=== PATIENT | male | born 1965 | race Caucasian/White ===

== ENCOUNTER → 2019-12-02 13:04 | Outpatient (BNVA) | payer MEDICARE, MEDICAID, SELFPAY | PROVIDERS: PCP Family Medicine; Visit Provider Internal Medicine Rheumatology | DX: M45.9 Ankylosing spondylitis of unspecified sites in spine (principal); Z11.59 Encounter for screening for other viral diseases; Z79.899 Other long term (current) drug therapy; Z15.89 Genetic susceptibility to other disease | CPT/HCPCS: 36415; 80076; 82565; 85025; 85651; 86140; 86704; 99214 ==

== ENCOUNTER 2022-06-20 11:50 | Emergency (ER) | payer MEDICARE, MEDICAID, SELFPAY ==
[2022-06-20 12:00] VITALS: BP 112/81; PULSE 112; RESP 16; TEMP 36.7; O2SAT 96; BMI 28.8
--- NOTE | 2022-06-20 12:04 | ECG_ITS ---
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 Measurements Intervals [place] Rate: 112 P: -5 LA: 140 QRS: 81 QRSD: 132 T: -5 QT: 341 QTc: 466 Interpretive Statements SINUS TACHYCARDIA RIGHT BUNDLE BRANCH BLOCK [120+ ms QRS DURATION, UPRIGHT V1, 40+ ms S IN I/aVL/V4/V5/V6] ST DEVIATION AND MARKED T-WAVE ABNORMALITY, CONSIDER ANTEROLATERAL ISCHEMIA [-0.5+ mV T-WAVE IN I/aVL/V3-V6] No previous ECG available for comparison Electronically Signed On 06-21-2022 14:08:26 CHECKER by Jaziel Hernandez M.D. [email or web address] USAselect medical [facility].Zane Prep/store/OM/[id number]
[2022-06-20 12:40] VITALS: BP 136/91; PULSE 106; RESP 16; O2SAT 94
--- NOTE | 2022-06-20 12:40 | XR_ITS ---
WS: [id number] Portable AP upright chest, 06/20/2022 Clinical Data: syncope Comparison: Two-view chest, 06/11/2018 Findings: No nodules, masses or effusions are seen. The heart is normal. The pulmonary vascularity is not increased. No pneumonia or pneumothorax is seen. There are monitor leads on the chest wall XR/XR chest 1V portable [id number] Impression: Negative chest.
--- NOTE | 2022-06-20 12:41 | ED_ITS ---
HPI - Arrhythmia/Palpitations General: Chief Complaint: Arrhythmia/Palpitations Stated Complaint: UC sent elevated hr Time Seen by Provider: 06/20/22 12:15 History of Present Illness: 56 year old male in with concerns of a syncopal episode yesterday. The patient now has had several syncopal episodes since 2019. The patient has felt well except he has been a little feverish since y esterday he has not objectively taken his temperature but has felt warm and then other times he has some chills. He is got a slight nonproductive cough nobody else is ill he does not have any other symptoms. Patient was initially over to urgent care with a sent him over here because his heart rate was a little bit elevated. Review of Systems 2 General: Reports: 10 or more systems reviewed and unremarkable except in HPI and below Const: Reports: chills, fatigue and malaise; Denies: fever(s) or night sweats Card: Denies: chest pain, palpitations or irregular heart rhythm Resp: Denies: dyspnea or productive cough Skin/Breast: Denies: rash or pruritus PFSH ED PFSH: Medical History Ankylosing spondylitis Health education/counseling High risk medication use HLA B27 (HLA B27 positive) Immunization counseling Joint pain Surgical History No significant past surgical history Family History Other CAD (coronary artery disease) Cancer Diabetes Heart disease Hypertension Denies family history of Rheumatoid arthritis Lupus Lung disease Stroke Social History Smoking and tobacco status: never smoked Physical Exam Const: COMMON NORMALS: no acute distress, patient oriented x3, alert and well nourished HENMT: COMMON NORMALS: normocephalic HEAD & SCALP: normocephalic Eye: COMMON NORMALS: Equal, round and reactive pupils present, EOMs intact bilaterally and conjunctivae normal CONJUNCTIVA: Yes conjunctivae normal PUPIL: Yes Equal, round and reactive pupils present Chest: COMMONS NORMALS: normal inspection of the chest and normal palpation of entire chest wall Resp: COMMON NORMALS: normal respiratory effort, No retractions, No use of accessory muscles, clear to auscultation bilaterally and percussion normal AUSCULTATION: clear to auscultation bilaterally PERCUSSION: percussion normal Cardio: OTHER: Regular rate and rhythm GI: COMMON NORMALS: Normal to inspection, nondistended, normoactive bowel sounds present, Soft to palpation, non-tender, No hepatosplenomegaly present, no masses and no bruits PALPATION: Yes Soft to palpation and Yes No hepatosplenomegaly present : COMMON NORMALS: Yes no CVA tenderness BLADDER/KIDNEY EXAM: Yes no CVA tenderness Back/Pelvis: COMMON NORMALS: no CVA tenderness Extremity: COMMON NORMALS: normal to inspection, full ROM, capillary refill normal, no joint enlargement, no clubbing, cyanosis or edema, no calf tenderness and no pedal edema Neuro: COMMON NORMALS: patient oriented x3 SENSORIUM/ORIENTATION: Yes alert Skin: COMMON NORMALS: no rashes or lesions noted, turgor normal and no jaundice GENERAL SKIN EXAM: no rashes or lesions noted and turgor normal Course Vital Signs: Vital signs: Vital Signs Temperature 98.1 F 06/20/22 12:00 Pulse Rate 106 H 06/20/22 16:44 Respiratory Rate 19 H 06/20/22 16:44 Blood Pressure 142/95 06/20/22 16:44 Pulse Oximetry 94 06/20/22 16:44 Oxygen Delivery Me thod 06/20/22 12:40 MDM - Arrhythmia/Palpitations Medical Decision Making 56-year-old male with syncope yesterday and now not feeling well today. The patient is a little tachycardic. Differential is broad and includes pneumonia, pulmonary embolism, pneumonia among others. Recommend a fairly broad work-up if his D-dimer is negative we can probably hold on his CTA. We will do serial reexaminations. EKG reveals right bundle branch block with OH interval of 178 ms QRS of 140 ms. Other work-up here was for the most part unremarkable and CT a did reveal concerns of possible pneumonitis. His white blood cell count is little bit elevated he has been feeling febrile. The patient will be started on some antibiotics but he will need a further work-up regarding his abnormal EKG and syncope. I have cautioned him on driving and told him the importance of making sure that he follows up on these issues as the work-up in regards to his syncope and some of his other symptoms I think was nondiagnostic. Lab Data 06/20/22 12:46 06/20/22 12:46 Radiology Impressions Chest X-Ray 06/20/22 12:40 Impression: Negative chest. Chest CTA 06/20/22 14:30 IMPRESSION: 1. No pulmonary embolism. 2. No RIGHT heart strain. 3. No pneumonia. 4. Mild atherosclerosis thoracic aorta. Laboratory Results WBC 12.8 10^3/uL (4.0-10.0) H 06/20/22 12:46 RBC 5.63 10^6/uL (4.1-5.3) H 06/20/22 12:46 Hgb 17.1 g/dL (11.7-16.6) H 06/20/22 12:46 Hct 48.8 % (42.0-52.0) 06/20/22 12:46 MCV 86.7 fl (80-94) 06/20/22 12:46 MCH 30.4 pg (28.0-34.0) 06/20/22 12:46 MCHC 35.0 g/dL (30.0-36.0) 06/20/22 12:46 RDW 12.8 % (12.1-15.1) 06/20/22 12:46 Plt Count 237 10^3/cmm (130-400) 06/20/22 12:46 MPV 9.6 fL (7.4-10.4) 06/20/22 12:46 Neut % (Auto) 90.4 % 06/20/22 12:46 Lymph % (Auto) 2.7 % 06/20/22 12:46 [place] % (Auto) 5.9 % 06/20/22 12:46 Eos % (Auto) 0.3 % 06/20/22 12:46 Baso % (Auto) 0.3 % 06/20/22 12:46 Neut # (Auto) 11.54 10^3/uL (1.8-7.7) H 06/20/22 12:46 Lymph # (Auto) 0.3 10^3/uL (0.8-4.8) L 06/20/22 12:46 [place] # (Auto) 0.8 10^3/uL (0.2-0.9) 06/20/22 12:46 Eos # (Auto) 0.0 10^3/uL (0.0-0.8) 06/20/22 12:46 Baso # (Auto) 0.0 10^3/uL (0.0-0.1) 06/20/22 12:46 Nucleated RBC % (auto) 0 % 06/20/22 12:46 Nucleated RBCs # 0.0 /100WBC 06/20/22 12:46 D-Dimer 0.97 ug/mIFEU (0-0.59) H 06/20/22 12:46 Sodium 129 mmol/L (136-145) L 06/20/22 12:46 Potassium 3.3 mmol/L (3.5-5.1) L 06/20/22 12:46 Chloride 91 mmol/L (98-107) L 06/20/22 12:46 Carbon Dioxide 22 mmol/L (22-29) 06/20/22 12:46 Anion Gap 19.3 (5-19) H 06/20/22 12:46 BUN 20 mg/dL (6-20) 06/20/22 12:46 Creatinine 1.5 mg/dL (0.7-1.2) H 06/20/22 12:46 GFR Calculation 48.8 mL/min (90-130) L 06/20/22 12:46 Glucose 132 mg/dL (65-115) H 06/20/22 12:46 Calculated Osmolality 272 mOsm/kg (285-295) L 06/20/22 12:46 Calcium 10.0 mg/dL (8.5-10.5) 06/20/22 12:46 Troponin T Baseline 7 ng/L (0-15) 06/20/22 12:46 NT-Pro-B Natriuret Pep 80 pg/mL (0-125) 06/20/22 12:46 Discharge Plan Discharge Patient Disposition: Home Clinical Impression: Abnormal EKG, Recurrent syncope, Pneumonitis Condition: Stable Prescriptions: New doxycycline hyclate 100 mg tablet 100 mg PO BID 7 Days Qty: 14 0RF No Action lisinopril-hydrochlorothiazide 20-12.5 mg tablet 1 tab PO DAILY Discharge Orders: Discharge ED (Routine); Ordered 06/20/22 Ordered By: Zev Ramos Discharge Diet: Usual diet Discharge Activity: Limit activity as instructed Patient Instructions: Opioid Safety, Pain Management Activity Restrictions/Additional Instructions: 1. Should avoid driving until cleared by cardiology or PCP. 2. Needs follow up in 3-5 days for recheck of labs / discuss abnormal EKG. 3. Return to ED for new or worsening symptoms. 4. Increase potassium rich foods. Coding Level of Care Code ED Hooker Machine Tender for Mac Jung
[2022-06-20 13:00] LABS: Basophils % 0.3 %; Eosinophils % 0.3 %; Hematocrit 48.8 % (42.0-52.0); Hemoglobin 17.1 g/dL (11.7-16.6); Lymphocytes # 0.3 10^3/uL (0.8-4.8); Lymphocytes % 2.7 %; Mean Corpuscular Hemoglobin 30.4 pg (28.0-34.0); Mean Corpuscular Volume 86.7 fl (80-94); Mean Platelet Volume 9.6 fL (7.4-10.4); Monocytes # 0.8 10^3/uL (0.2-0.9); Monocytes % 5.9 %; Neutrophils # 11.54 10^3/uL (1.8-7.7); Neutrophils % 90.4 %; Nucleated Red Blood Cells % 0 %; Platelet Count 237 10^3/cmm (130-400); Red Blood Count 5.63 10^6/uL (4.1-5.3); Red Cell Distribution Width 12.8 % (12.1-15.1); White Blood Count 12.8 10^3/uL (4.0-10.0)
--- NOTE | 2022-06-20 13:11 | ECG_ITS ---
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 Measurements Intervals [place] Rate: 96 P: 27 MN: 178 QRS: 52 QRSD: 140 T: 7 QT: 359 QTc: 455 Interpretive Statements SINUS RHYTHM RIGHT BUNDLE BRANCH BLOCK [120+ ms QRS DURATION, UPRIGHT V1, 40+ ms S IN I/aVL/V4/V5/V6] Compared to ECG 06/20/2022 12:07:18 Sinus tachycardia no longer present T-wave abnormality no longer present Possible ischemia no longer present Electronically Signed On 06-21-2022 14:09:26 SERVICE CENTER MANAGER by Jaziel Hernandez M.D. [email or web address] Products [email or web address] clinic hillcrest hospital.[employer]/store/OM/[id number]
[2022-06-20 13:15] LABS: D Dimer 0.97 ug/mIFEU (0-0.59)
[2022-06-20 13:21] LABS: Troponin(5th) Baseline 7 ng/L (0-15)
[2022-06-20 13:28] LABS: Anion Gap 19.3 (5-19); Blood Urea Nitrogen 20 mg/dL (6-20); Carbon Dioxide 22 mmol/L (22-29); Chloride 91 mmol/L (98-107); Glomerular Filtration Rate 48.8 mL/min (90-130); Glucose 132 mg/dL (65-115); NT Pro B Type Natriuretic Pept 80 pg/mL (0-125); Osmolality Calculated 272 mOsm/kg (285-295); Potassium 3.3 mmol/L (3.5-5.1); Sodium 129 mmol/L (136-145)
--- NOTE | 2022-06-20 14:30 | CT_ITS ---
WS: [id number] CT CHEST ANGIOGRAPHY WITH REFORMATS HISTORY: Syncope / Elevated D-Dimer TECHNIQUE: Contiguous axial images are obtained through the chest during arterial injection of intrav enous contrast. Images are reconstructed to evaluate the pulmonary arteries. MIP imaging also reviewe d. All CT scans at [facility] use at least one of these dose optimization techniques: automat ed exposure control; mA and/or kV adjustment per patient size (includes targeted exams where dose is matched to clinical indication); or iterative reconstruction. CONTRAST: Omnipaque 350; 95 mL IV. DLP: 357.62 mGy.cm COMPARISON: None available. Good opacification of the pulmonary arteries. No filling defects or pulmonary emboli are identified. There is good opacification to the segmental branches. Pulmonary artery is not dilated. No RIGHT hear t strain. Mild atherosclerosis aorta. No dissection or aneurysm. No mediastinal or hilar adenopathy. Mild dependent changes at the lung bases. There is groundglass attenuation in the RIGHT lower lobe wh ich may be due to early changes of pneumonitis but more likely related to poor inspiration. No perica rdial or pleural effusions. Small hiatal hernia. No adrenal mass. Calcification along the anterior longitudinal ligament. CT/CT angio chest PE protcl [id number] IMPRESSION: 1. No pulmonary embolism. 2. No RIGHT heart strain. 3. No pneumonia. 4. Mild atherosclerosis thoracic aorta.
[2022-06-20] MEDS: iohexol 350 mg/mL 500 mL Btl (per mL) IV (15:29)
[2022-06-20 16:03] VITALS: BP 142/95; PULSE 100; RESP 17; O2SAT 98
[2022-06-20 16:05] VITALS: BP 142/95; PULSE 106; RESP 19; O2SAT 94
[2022-06-20 16:44] VITALS: BP 142/95; PULSE 106; RESP 19; O2SAT 94
== END 2022-06-20 16:46 | disposition home or self-care (01) ==
PROVIDERS: Emergency Provider Family Medicine
DX: R55 Syncope and collapse (principal); J18.9 Pneumonia, unspecified organism; I70.0 Atherosclerosis of aorta
CPT/HCPCS: 71045; 71275; 80048; 83880; 84484; 85025; 85378; 93005; 99285; Q9967

== ENCOUNTER → 2022-08-17 14:40 | Outpatient (BNVA) | payer MEDICARE, MEDICAID, SELFPAY | PROVIDERS: PCP Family Medicine; Visit Provider Internal Medicine Cardiovascular Disease | DX: R55 Syncope and collapse (principal); R94.31 Abnormal electrocardiogram [ECG] [EKG]; I10 Essential (primary) hypertension; Z15.89 Genetic susceptibility to other disease; Z87.891 Personal history of nicotine dependence | CPT/HCPCS: 99204 ==

== ENCOUNTER 2022-09-15 08:23 | Outpatient (CLI) | payer MEDICARE, MEDICAID, SELFPAY ==
--- NOTE | 2022-09-15 08:45 | USCV_ITS ---
Parker Hayes Age: 57 Gender: M : 1965 Exam Date: 09/15/2022 09:13 Ordering Phys: Jaziel Hernandez MD ([email or web address]) Technologist: Naa Whitaker Exam Location: [facility] Indication: SOB, HTN BP: 122 / 80 HR: 69 Rhythm: Sinus Technical Quality: Adequate MEASUREMENTS (Male / Female) Normal Values 2D ECHO LV Diastolic Diameter PLAX 4.5 cm 4.2 - 5.9 / 3.9 - 5.3 cm LV Systolic Diameter PLAX 2.3 cm IVS Diastolic Thickness 0.8 cm 0.6 - 1.0 / 0.6 - 0.9 cm IVS Systolic Thickness 1.2 cm LVPW Diastolic Thickness 0.8 cm 0.6 - 1.0 / 0.6 - 0.9 cm LVPW Systolic Thickness 1.7 cm LVOT Diameter 2.0 cm LV Ejection Fraction 2D Teich 80.8 % LV Ejection Fraction MOD 2C 62.2 % LV Ejection Fraction 2C AL 63.0 % LA Diameter 2.1 cm LA Width 2.8 cm LA Height 4.1 cm RA Width 3.4 cm RA Height 3.8 cm Aorta at Sinotubular Diameter 2.5 cm IVC Diameter 2.2 cm M-MODE Aortic Annulus Diameter 3.5 cm LA Ao Ratio MM 0.6 MV E Point Septal Separation 0.5 cm DOPPLER AV Peak Velocity 92.0 cm/s LVOT Peak Velocity 74.0 cm/s AV Area Cont Eq vti 3.0 cm squared AV Area Cont Eq pk 2.6 cm squared MV Peak Velocity 79.0 cm/s MV Area PHT 2.7 cm squared Mitral E to A Ratio 1.0 MV E' Velocity 41.0 cm/s Mitral E to MV E' Ratio 7.7 Mitral E to LV E' Lateral Ratio 8.3 Mitral E to LV E' Septal Ratio 7.1 TR Peak Velocity 60.0 cm/s TR Peak Gradient 1.4 mmHg Right Atrial Pressure 5.0 mmHg Pulmonary Artery Systolic Pressu 6.4 mmHg PV Peak Velocity 113.0 cm/s RV Acceleration Time 0.1 s RV Ejection Time 0.3 s RV AcT/ET 0.3 FINDINGS Left Ventricle Left Ventricle is normal in size. LV systolic function is normal with EF of 60 to 65%. No regional wall motion abnormalities are seen. Right Ventricle Normal in size and function Right Atrium Normal in size Left Atrium Normal in size Mitral Valve Structurally normal mitral valve. Trace mitral regurgitation Aortic Valve Structurally normal aortic valve. No significant stenosis or regurgitation. Tricuspid Valve Mild tricuspid regurgitation. Insufficient TR jet to calculate RVSP Pulmonic Valve Not well-visualized Pericardium Normal Aorta Normal in size IVC Appears to be normal CONCLUSIONS LV systolic function is normal with EF 60 to 65%. Trace mitral regurgitation Mild tricuspid regurgitation No comparison studies are available Nav Anand MD (Electronically Signed) Final Date: 30 September 2022 12:34 S
== END 2022-09-15 08:24 | disposition home or self-care (01) ==
PROVIDERS: PCP Family Medicine; Visit Provider Internal Medicine Cardiovascular Disease
DX: R06.09 Other forms of dyspnea (principal)
CPT/HCPCS: 93306

== ENCOUNTER → 2022-11-02 13:32 | Outpatient (BNVA) | payer MEDICARE, MEDICAID, SELFPAY | PROVIDERS: PCP Family Medicine; Visit Provider Internal Medicine Cardiovascular Disease | DX: R55 Syncope and collapse (principal); I10 Essential (primary) hypertension; Z87.891 Personal history of nicotine dependence | CPT/HCPCS: 99214 ==

== ENCOUNTER 2023-11-27 18:59 | Emergency (ER) | payer OTHER, MEDICAID, SELFPAY ==
[2023-11-27 19:14] VITALS: BP 131/81; PULSE 67; RESP 16; TEMP 36.6; O2SAT 99
--- NOTE | 2023-11-27 19:43 | CTR_ITS ---
PROCEDURE INFORMATION: Exam: CT Abdomen And Pelvis Without Contrast Exam date and time: 11/27/2023 7:57 PM Age: 58 years old Clinical indication: Abdominal pain; Additional info: Flank pain TECHNIQUE: Imaging protocol: Computed tomography of the abdomen and pelvis without contrast. Radiation optimization: All CT scans at this facility use at least one of these dose optimization techniques: automated exposure control; mA and/or kV adjustment per patient size (includes targeted exams where dose is matched to clinical indication); or iterative reconstruction. COMPARISON: CT angio chest PE protcl [id number] 06/20/2022 3:24 PM RADIATION DOSE METRICS: Total DLP (mGy-cm): 423 FINDINGS: Liver: Hepatomegaly measuring up to 20 cm. No mass. Gallbladder and biliary ducts: Normal. No calcified stones. No ductal dilation. Pancreas: Normal. No ductal dilation. Spleen: Normal. No splenomegaly. Adrenal glands: Left adrenal nodule measuring approximately 1.4 x 1.1 x 1.5 cm (AP by TV by cc) with Hounsfield unit suboptimally 15. Recommend nonemergent CT scan with adrenal protocol for further evaluation. Kidneys and ureters: There is a 0.7 cm calculus at the level of the left ureterovesicular junction causing moderate to severe left-sided hydroureteronephrosis. Large calculus within the left renal pelvis measuring up to 3.0 x 2.5 cm causing a moderate to severe degree of left-sided hydroureteronephrosis. Numerous other nonobstructing calculi within the left kidney. The left kidney is enlarged measuring up to 17 cm in long axis. The right kidney is not visualized. Stomach and bowel: Diverticulosis without evidence of diverticulitis. Appendix: No evidence of appendicitis. Intraperitoneal space: Unremarkable. No free air. No significant fluid collection. Vasculature: Unremarkable. No abdominal aortic aneurysm. Lymph nodes: Unremarkable. No enlarged lymph nodes. Urinary bladder: Unremarkable as visualized. Reproductive: Unremarkable as visualized. Bones/joints: Multilevel anterior syndesmophytes concerning for ankylosing spondylitis or reactive arthritis. Soft tissues: Unremarkable. CT/CT kidney stone [id number] IMPRESSION: 1. There is a 0.7 cm calculus at the level of the left ureterovesicular junction causing moderate to severe left-sided hydroureteronephrosis. Large calculus within the left renal pelvis measuring up to 3.0 x 2.5 cm causing a moderate to severe degree of left-sided hydroureteronephrosis. Numerous other nonobstructing calculi within the left kidney. The right kidney is not visualized. 2. Left adrenal nodule measuring approximately 1.4 x 1.1 x 1.5 cm (AP by TV by cc) with Hounsfield unit suboptimally 15. Recommend nonemergent CT scan with adrenal protocol for further evaluation. COMMENTS: Consistent with the [place] [employer]'s Incidental Findings Committee white paper (J Am Monica Radiol 2017): For any incidental adrenal lesion greater than or equal to 1 cm but less than or equal to 4 cm classified in this report as benign, likely benign, or containing fat (including classification as an adenoma or myelolipoma), no follow-up imaging is recommended per consensus recommendations based on imaging criteria. Further lab evaluation could be pursued if warranted based on clinical findings.
--- NOTE | 2023-11-27 19:45 | ED_ITS ---
HPI - Male Genitourinary 2 General: Chief complaint: Urogenital-Male Stated complaint: Can't pee Time Seen by Provider: 11/27/23 19:25 Source: patient Mode of arrival: ambulatory Limitations: no limitations History of Present Illness: 58-year-old male states that he is havin g some flank pain yesterday states that is since resolved he had some very mild mid lower abdominal pain he rates 1 out of 10 but states that today he has not been producing much urine he states he did not urinate all day till just prior to arrival. He had 1 episode of vomiting today denies any fevers denies any dysuria. Associated symptoms: Deny nausea or vomiting Review of Systems 2 Const: Denies: fever(s), chills, body aches or change in appetite ENMT: Denies: throat pain or dental pain Card: Denies: chest pain Resp: Denies: dyspnea GI: Reports: abdominal pain; Denies: nausea, vomiting or diarrhea : Reports: flank pain and difficulty urinating Musc: Denies: neck pain or back pain Skin/Breast: Denies: rash Neuro: Denies: headache(s) PFSH ED 2 PFSH: Medical History Recurrent syncope Immunization counseling High risk medication use HLA B27 (HLA B27 positive) Ankylosing spondylitis Health education/counseling Joint pain Surgical History No significant past surgical history Family History Other CAD (coronary artery disease) Cancer Diabetes Heart disease Hypertension Denies family history of Rheumatoid arthritis Lupus Lung disease Stroke Social History Smoking and tobacco/nicotine status: former use of tobacco/nicotine Substance/Drug Use: never Physical Exam 2 Const: COMMON NORMALS: no acute distress, patient oriented x3 and healthy appearing HENMT: COMMON NORMALS: normocephalic and atraumatic HEAD & SCALP: n ormocephalic and atraumatic Eye: COMMON NORMALS: conjunctivae normal CONJUNCTIVA: Yes conjunctivae normal Neck/C-Spine: COMMON NORMALS: full ROM and supple Chest: COMMONS NORMALS: normal inspection of the chest Resp: COMMON NORMALS: normal respiratory effort Cardio: COMMON NORMALS: regular rate, regular rhythm and No murmurs present (Cardio) RATE: regular rate RHYTHM: regular rhythm GI: COMMON NORMALS: Normal to inspection, nondistended, normoactive bowel sounds present, Soft to palpation, non-tender and no masses PALPATION: Yes Soft to palpation Extremity: COMMON NORMALS: normal to inspection and full ROM Neuro: COMMON NORMALS: patient oriented x3, moves all extremities and no focal motor deficits Psych: COMMON NORMALS: mental status grossly normal, Normal thought process present and cooperative THOUGHT PROCESS: Normal thought process present Skin: COMMON NORMALS: no rashes or lesions noted and no wounds GENERAL SKIN EXAM: no rashes or lesions noted Course 2 Vital Signs: Vital signs: Vital Signs Temperature 97.9 F 11/27/23 19:14 Pulse Rate 70 11/27/23 20:16 Respiratory Rate 16 11/27/23 20:16 Blood Pressure 131/81 11/27/23 19:14 Pulse Oximetry 99 11/27/23 20:16 Oxygen Delivery Me thod Room Air 11/27/23 19:14 MDM - Male Medical Decision Making Patient presents with flank pain along with decreased urination he is found to have a very large kidney stone with obstruction does have acute kidney injury as well likely from his kidney stone has a creatinine of 5.5 here. I did speak to Sylwai Low will transfer patient there for higher level of care with urology. Patient requested to go by private vehicle. I did instruct him to not eat or drink anything on his way Medical Records I reviewed the patient's medical records. Lab Data I reviewed the patient's lab results. 11/27/23 19:55 11/27/23 19:55 Radiology Impressions Abdomen/Pelvis CT 11/27/23 19:43 IMPRESSION: 1. There is a 0.7 cm calculus at the level of the left ureterovesicular junction causing moderate to severe left-sided hydroureteronephrosis. Large calculus within the left renal pelvis measuring up to 3.0 x 2.5 cm causing a moderate to severe degree of left-sided hydroureteronephrosis. Numerous other nonobstructing calculi within the left kidney. The right kidney is not visualized. 2. Left adrenal nodule measuring approximately 1.4 x 1.1 x 1.5 cm (AP by TV by cc) with Hounsfield unit suboptimally 15. Recommend nonemergent CT scan with adrenal protocol for further evaluation. COMMENTS: Consistent with the [place] [employer]'s Incidental Findings Committee white paper (J Am Monica Radiol 2017): For any incidental adrenal lesion greater than or equal to 1 cm but less than or equal to 4 cm classified in this report as benign, likely benign, or containing fat (including classification as an adenoma or myelolipoma), no follow-up imaging is recommended per consensus recommendations based on imaging criteria. Further lab evaluation could be pursued if warranted based on clinical findings. Laboratory Results WBC 10.13 10^3/uL (3.29-11.43) 11/27/23 19:55 RBC 5.08 10^6/uL (3.85-5.65) 11/27/23 19:55 Hgb 15.90 g/dL (11.27-16.99) 11/27/23 19:55 Hct 46.6 % (37-53) 11/27/23 19:55 MCV 91.7 fl (82-101) 11/27/23 19:55 MCH 31.3 pg (27-33) 11/27/23 19:55 MCHC 34.1 g/dL (30-55) 11/27/23 19:55 RDW 13.3 % (12.1-15.1) 11/27/23 19:55 Plt Count 216 10^3/cmm (157-399) 11/27/23 19:55 MPV 9.2 fL (7.4-10.4) 11/27/23 19:55 Neut % (Auto) 83.0 % 11/27/23 19:55 Lymph % (Auto) 5.3 % 11/27/23 19:55 [place] % (Auto) 10.1 % 11/27/23 19:55 Eos % (Auto) 1.1 % 11/27/23 19:55 Baso % (Auto) 0.2 % 11/27/23 19:55 Neut # (Auto) 8.41 10^3/uL (1.8-7.7) H 11/27/23 19:55 Lymph # (Auto) 0.5 10^3/uL (0.8-4.8) L 11/27/23 19:55 [place] # (Auto) 1.0 10^3/uL (0.2-0.9) H 11/27/23 19:55 Eos # (Auto) 0.1 10^3/uL (0.0-0.8) 11/27/23 19:55 Baso # (Auto) 0.0 10^3/uL (0.0-0.1) 11/27/23 19:55 Nucleated RBC % (auto) 0 % 11/27/23 19:55 Nucleated RBCs # 0.0 /100WBC 11/27/23 19:55 Sodium 133 mmol/L (136-145) L 11/27/23 19:55 Potassium 4.2 mmol/L (3.5-5.1) 11/27/23 19:55 Chloride 94 mmol/L (98-107) L 11/27/23 19:55 Carbon Dioxide 22 mmol/L (22-29) 11/27/23 19:55 Anion Gap 21.2 (5-19) H 11/27/23 19:55 BUN 53 mg/dL (6-20) H 11/27/23 19:55 Creatinine 5.5 mg/dL (0.7-1.2) H 11/27/23 19:55 GFR Calculation 10.8 mL/min (90-130) L 11/27/23 19:55 Glucose 109 mg/dL (65-115) 11/27/23 19:55 Calculated Osmolality 291 mOsm/kg (285-295) 11/27/23 19:55 Calcium 9.4 mg/dL (8.5-10.5) 11/27/23 19:55 Total Bilirubin 1.3 mg/dL (0.15-1.2) H 11/27/23 19:55 AST 22 U/L (0-40) 11/27/23 19:55 ALT 16 U/L (0-41) 11/27/23 19:55 Alkaline Phosphatase 89 U/L (40-130) 11/27/23 19:55 Total Protein 7.0 g/dL (6.6-8.7) 11/27/23 19:55 Albumin 4.3 g/dL (3.5-5.2) 11/27/23 19:55 Globulin 2.7 g/dL (1.3-4.6) 11/27/23 19:55 Lipase 37 U/L (13-60) 11/27/23 19:55 All radiology interpretation(s) finalized by discharge Discharge Plan Discharge Patient Disposition: Xfer Short-Term Hosp Clinical Impression: Kidney stone, MARCIAL (acute kidney injury) Condition: Stable Prescriptions: No Action lisinopril 10 mg tablet 10 mg PO DAILY Humira(CF) Pen 40 mg/0.4 mL pen injector kit SUBCUT Referrals: Eduard Feliz, BRUSH CLEANER [Primary Care Provider] - Coding Level of Care Code ED Manager Highway for Mac Jung
[2023-11-27] MEDS: sodium chloride 0.9% 1,000 ML 999 ML IV (19:57)
[2023-11-27 20:00] LABS: Basophils % 0.2 %; Eosinophils # 0.1 10^3/uL (0.0-0.8); Eosinophils % 1.1 %; Hematocrit 46.6 % (37-53); Lymphocytes # 0.5 10^3/uL (0.8-4.8); Lymphocytes % 5.3 %; Mean Corpuscular HGB Conc 34.1 g/dL (30-55); Mean Corpuscular Hemoglobin 31.3 pg (27-33); Mean Corpuscular Volume 91.7 fl (82-101); Mean Platelet Volume 9.2 fL (7.4-10.4); Monocytes % 10.1 %; Neutrophils # 8.41 10^3/uL (1.8-7.7); Nucleated Red Blood Cells % 0 %; Platelet Count 216 10^3/cmm (157-399); Red Blood Count 5.08 10^6/uL (3.85-5.65); Red Cell Distribution Width 13.3 % (12.1-15.1); White Blood Count 10.13 10^3/uL (3.29-11.43)
[2023-11-27 20:16] VITALS: PULSE 70; RESP 16; O2SAT 99
[2023-11-27 20:27] LABS: Alanine Aminotransferase 16 U/L (0-41); Albumin Level 4.3 g/dL (3.5-5.2); Alkaline Phosphatase 89 U/L (40-130); Anion Gap 21.2 (5-19); Aspartate Amino Transferase 22 U/L (0-40); Blood Urea Nitrogen 53 mg/dL (6-20); Calcium 9.4 mg/dL (8.5-10.5); Carbon Dioxide 22 mmol/L (22-29); Chloride 94 mmol/L (98-107); Creatinine Clr Calc Pharmacy 14.8633; Globulin 2.7 g/dL (1.3-4.6); Glomerular Filtration Rate 10.8 mL/min (90-130); Glucose 109 mg/dL (65-115); Lipase 37 U/L (13-60); Osmolality Calculated 291 mOsm/kg (285-295); Potassium 4.2 mmol/L (3.5-5.1); Sodium 133 mmol/L (136-145); Total Bilirubin 1.3 mg/dL (0.15-1.2)
[2023-11-27 22:48] VITALS: BP 129/79; PULSE 72; RESP 18; O2SAT 99
[2023-11-27] MEDS: ondansetron 2 mg/ML SDV 2 mL 4 MG IVP (23:02)
== END 2023-11-27 23:06 | disposition short-term general hospital (02) ==
PROVIDERS: Emergency Provider Emergency Medicine; PCP Nurse Practitioner
DX: N13.2 Hydronephrosis with renal and ureteral calculous obstruction (principal); N17.9 Acute kidney failure, unspecified; Z87.891 Personal history of nicotine dependence
CPT/HCPCS: 74176; 80053; 83690; 85025; 96361; 96374; 99285; J2405; J7030

== ENCOUNTER → 2024-08-28 13:23 | Outpatient (BNVA) | payer OTHER, MEDICAID, SELFPAY | PROVIDERS: PCP Nurse Practitioner; Visit Provider Nurse Practitioner Family | DX: D22.39 Melanocytic nevi of other parts of face (principal); L82.1 Other seborrheic keratosis; D22.5 Melanocytic nevi of trunk; Z12.83 Encounter for screening for malignant neoplasm of skin; L57.0 Actinic keratosis; X32.XXXA Exposure to sunlight, initial encounter | CPT/HCPCS: 17000; 99203 ==

== ENCOUNTER 2025-03-03 11:01 | Emergency (ER) | payer OTHER, MEDICAID, SELFPAY ==
[2025-03-03 11:05] VITALS: BP 185/112; PULSE 95; RESP 16; TEMP 36.8; O2SAT 98; BMI 24.3
--- NOTE | 2025-03-03 11:05 | W.ED.GENADLT ---
HPI - General Adult General: Chief complaint: Weakness Stated complaint: Weakness and both arms/legs for several days Time Seen by Provider: 03/03/25 11:04 History of Present Illness: 59-year-old male presents emergency room with vague series of symptoms. He states he has had palpitations last few days 3 to 4 days ago an episode where he woke up in the morning and was mildly aphasic. He has a history of hypertension but he only takes his blood pressure medicine when he notes his blood pressure is elevated. He has a history of ankylosing spondylolysis and is on Humira. No chest pain or shortness of breath no fever sweats chills no abdominal discomfort. Years ago he had a workup for some episodes of syncope in which he had injured his neck. He also has a history of chronic kidney disease and has a solitary kidney and has had nephrolithiasis in the past has no flank pain at this time. Associated symptoms: Reports malaise and palpitations; Deny chest pain, dyspnea or rash Related Data Home Medications ?Medication ?Instructions ?Recorded ?Confirmed lisinopril 10 mg tablet 10 mg PO DAILY 08/17/22 03/03/25 adalimumab 40 mg/0.4 mL 40 mg SUBCUT .Q14D 11/26/23 03/03/25 subcutaneous pen kit (Humira(CF) Pen) Allergies Allergy/AdvReac Type Severity Reaction Status Date / Time No Known Allergies Allergy Verified 11/27/23 19:18 Review of Systems Const: Reports: fatigue and malaise; Denies: fever(s) or chills Card: Reports: palpitations; Denies: chest pain, edema, swelling of feet/ankles, dyspnea on exertion or orthopnea Resp: Denies: dyspnea GI: Denies: abdominal pain : Denies: dysuria, urinary frequency or urinary urgency Musc: Denies: neck pain or back pain Skin/Breast: Denies: rash PFSH ED PFSH: Medical History Recurrent syncope Immunization counseling High risk medication use HLA B27 (HLA B27 positive) Ankylosing spondylitis Health education/counseling Joint pain Surgical History No significant past surgical history Family History Other CAD (coronary artery disease) Cancer Diabetes Heart disease Hypertension Denies family history of Rheumatoid arthritis Lupus Lung disease Stroke Social History Smoking and tobacco/nicotine status: former use of tobacco/nicotine Substance/Drug Use: never Physical Exam Const: COMMON NORMALS: no acute distress GENERAL APPEARANCE: cooperative and comfortable ORIENTATION/CONSCIOUSNESS: Yes awake, Yes oriented to person, Yes oriented to place and Yes oriented to time HENMT: COMMON NORMALS: normocephalic, atraumatic and hearing grossly normal bilaterally HEAD & SCALP: normocephalic and atraumatic Resp: COMMON NORMALS: normal respiratory effort, No retractions, No use of accessory muscles and clear to auscultation bilaterally AUSCULTATION: clear to auscultation bilaterally Cardio: COMMON NORMALS: regular rate, regular rhythm and No murmurs present (Cardio) RATE: regular rate RHYTHM: regular rhythm GI: COMMON NORMALS: Soft to palpation and No hepatosplenomegaly present AUSCULTATION: Yes normoactive bowel sounds PALPATION: Yes Soft to palpation, No Tenderness to palpation present (GI), No Guarding due to palpation present (GI) and Yes No hepatosplenomegaly present Extremity: COMMON NORMALS: normal to inspection, capillary refill normal, no clubbing, cyanosis or edema, no calf tenderness and no pedal edema Neuro: SENSORIUM/ORIENTATION: Yes oriented to person, Yes oriented to place and Yes oriented to time OTHER: No focal neurologic deficits noted Skin: COMMON NORMALS: no rashes or lesions noted GENERAL SKIN EXAM: no rashes or lesions noted Course Vital Signs: Vital signs: Vital Signs Temperature 98.2 F 03/03/25 11:05 Pulse Rate 83 03/03/25 12:57 Respiratory Rate 16 03/03/25 11:05 Blood Pressure 134/87 03/03/25 12:57 Pulse Oximetry 98 03/03/25 12:57 Oxygen Delivery Me thod Room Air 03/03/25 11:05 [facility] - General Adult Medical Decision Making Patient reports palpitations bilateral weakness in the arms and legs he has no focal neurologic deficits noted no lateralizing symptoms. Chest x-ray normal CT head negative UA otherwise unremarkable. Will discharge patient home have him follow-up with his primary care doctor. Encouraged him to continue taking his lisinopril daily. Medical Records I reviewed the patient's medical records. Lab Data I reviewed the patient's lab results. 03/03/25 11:16 03/03/25 11:[address] 03/03/25 11:27 IMPRESSION: 1. No acute intracranial hemorrhage or edema. 2. Stable noncontrast head CT. 3. No prior infarct. Chest X-Ray 03/03/25 12:04 IMPRESSION: 1. Pulmonary hyperinflation but no acute process. 2. Findings that suggest ankylosing spondylitis. Laboratory Results WBC 6.75 10^3/uL (3.29-11.43) 03/03/25 11:16 RBC 5.33 10^6/uL (3.85-5.65) 03/03/25 11:16 Hgb 16.60 g/dL (11.27-16.99) 03/03/25 11:16 Hct 49.2 % (37-53) 03/03/25 11:16 MCV 92.3 fl (82-101) 03/03/25 11:16 MCH 31.1 pg (27-33) 03/03/25 11:16 MCHC 33.7 g/dL (30-55) 03/03/25 11:16 RDW 12.6 % (12.1-15.1) 03/03/25 11:16 Plt Count 252 10^3/cmm (157-399) 03/03/25 11:16 MPV 9.6 fL (7.4-10.4) 03/03/25 11:16 Neut % (Auto) 65.8 % 03/03/25 11:16 Lymph % (Auto) 18.2 % 03/03/25 11:16 Mchenry % (Auto) 11.3 % 03/03/25 11:16 Eos % (Auto) 4.0 % 03/03/25 11:16 Baso % (Auto) 0.4 % 03/03/25 11:16 Neut # (Auto) 4.44 10^3/uL (1.8-7.7) 03/03/25 11:16 Lymph # (Auto) 1.2 10^3/uL (0.8-4.8) 03/03/25 11:16 Mchenry # (Auto) 0.8 10^3/uL (0.2-0.9) 03/03/25 11:16 Eos # (Auto) 0.3 10^3/uL (0.0-0.8) 03/03/25 11:16 Baso # (Auto) 0.0 10^3/uL (0.0-0.1) 03/03/25 11:16 Nucleated RBC % (auto) 0 % 03/03/25 11:16 Nucleated RBCs # 0.0 /100WBC 03/03/25 11:16 Sodium 140 mmol/L (136-145) 03/03/25 11:16 Potassium 3.9 mmol/L (3.5-5.1) 03/03/25 11:16 Chloride 101 mmol/L (98-107) 03/03/25 11:16 Carbon Dioxide 26 mmol/L (22-29) 03/03/25 11:16 Anion Gap 16.9 (5-19) 03/03/25 11:16 BUN 15 mg/dL (6-20) 03/03/25 11:16 Creatinine 0.9 mg/dL (0.7-1.2) 03/03/25 11:16 GFR Calculation 87.0 mL/min (90-130) L 03/03/25 11:16 Glucose 103 mg/dL (65-115) 03/03/25 11:16 Calculated Osmolality 291 mOsm/kg (285-295) 03/03/25 11:16 Calcium 9.8 mg/dL (8.5-10.5) 03/03/25 11:16 Total Bilirubin 1.2 mg/dL (0.15-1.2) 03/03/25 11:16 AST 18 U/L (0-40) 03/03/25 11:16 ALT 17 U/L (0-41) 03/03/25 11:16 Alkaline Phosphatase 83 U/L (40-130) 03/03/25 11:16 Creatine Kinase 79 U/L (39-308) 03/03/25 11:16 Total Protein 7.1 g/dL (6.6-8.7) 03/03/25 11:16 Albumin 4.7 g/dL (3.5-5.2) 03/03/25 11:16 Globulin 2.4 g/dL (1.3-4.6) 03/03/25 11:16 Urine Color Yellow (Yellow) 03/03/25 11:14 Urine Appearance Clear (CLEAR) 03/03/25 11:14 Urine pH 6.5 (5-7) 03/03/25 11:14 Ur Specific Layton 1.008 (1.005-1.030) 03/03/25 11:14 Urine Protein Negative (Negative) 03/03/25 11:14 Urine Glucose (UA) Negative (Normal) 03/03/25 11:14 Urine Ketones Negative (Negative) 03/03/25 11:14 Urine Blood Negative (Negative) 03/03/25 11:14 Urine Nitrate Negative (Negative) 03/03/25 11:14 Urine Bilirubin Negative (Negative) 03/03/25 11:14 Urine Urobilinogen 0.2 mg/dL (Negative) 03/03/25 11:14 Ur Leukocyte Esterase Negative (Negative) 03/03/25 11:14 Urine RBC 0-2 /hpf (0-2) 03/03/25 11:14 Urine WBC 0-5 /hpf (0-5) 03/03/25 11:14 Ur Squamous Epith Cells 0-5 /hpf (0-5) 03/03/25 11:14 Amorphous Sediment Not Reportable 03/03/25 11:14 Urine Bacteria None seen /hpf (NONE) 03/03/25 11:14 Hyaline Casts 0-4 /lpf H 03/03/25 11:14 All radiology interpretation(s) finalized by discharge Discharge Plan Discharge Patient Disposition: Home Clinical Impression: Weakness, Benign essential HTN, Ankylosing spondylitis Condition: Stable Prescriptions: No Action lisinopril 10 mg tablet 10 mg PO DAILY Humira(CF) Pen 40 mg/0.4 mL pen injector kit 40 mg SUBCUT .Q14D Discharge Orders: Discharge ED (Routine); Ordered 03/03/25 Ordered By: Ralhp Sanches Referrals: Eduard Feliz, METAL SHAPING MACHINE OPERATOR [Primary Care Provider, Nurse Practitioner] Discharge Diet: Usual diet Discharge Activity: Increase activity as tolerated Patient Instructions: Opioid Safety, Pain Management, Patient Portal & Alondra Instructions Activity Restrictions/Additional Instructions: Thank you for choosing [facility] for your healthcare needs today. It is very important that you follow up as instructed or that you return to the Emergency Department should you have concerns or if your condition changes or worsens in any way. Emergency department visits are focused on emergent conditions, in some cases you may require further evaluation on an outpatient basis. You are seen emergency room complaints weakness laboratory test EKG chest x-ray and CT of your head were all unremarkable your blood pressure was elevated and you are prescribed recommend resuming taking your lisinopril daily and follow-up with your primary care doctor within a week to reevaluate further also set you up for an outpatient Holter monitor to evaluate your heart further. (Please note that included in your discharge packet is information concerning opioid safety and pain management. This information is given to all patients were discharged from the ER regardless of their discharge diagnosis or the medicines they usually take or are prescribed.) Print Language: Kiswahili Coding Level of Care Code ED Ocular Care Technologist for Mac Jung
--- NOTE | 2025-03-03 11:08 | ECG_ITS ---
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 Measurements Intervals Randolph Rate: 93 P: 74 TN: 175 QRS: 72 QRSD: 138 T: 46 QT: 384 QTc: 479 Interpretive Statements SINUS RHYTHM RIGHT BUNDLE BRANCH BLOCK [120+ ms QRS DURATION, UPRIGHT V1, 40+ ms S IN I/aVL/V4/V5/V6] Compared to ECG 06/20/2022 13:11:16 No significant changes Electronically Signed On 03-04-2025 20:24:48 MULTIPLE LAUNCH ROCKET SYSTEM CREWMEMBER by Delonte Kelsey M.D. [email or web address]
--- OUTSIDE RECORDS SUMMARY | 2025-03-03 11:08 | XMS_ITS | Encounter Summary ---
Author Organization [facility] Address [address] [place] [address] Care Team Providers Care Coil Winder Name Role Phone Unavailable Primary Care Provider Unavailabl e Encounter Details Date Type Department Care Team (Latest Contact Info) Description 06/02/2005 Outpatient Historical [facility] [address] [place] [phone] Ed Sinha MD NO ADDRESS ON FILE BONE & CARTILAGE DIS NOS (Primary Dx) Social History Tobacco Use Types Packs/Day Years Used Date Smoking Tobacco: Never Assessed Sex and Gender Information Value Date Recorded Sex Assigned at Not on file 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
--- OUTSIDE RECORDS SUMMARY | 2025-03-03 11:08 | XMS_ITS | Encounter Summary ---
Author Organization [facility] Address [address] [place] [address] Care Team Providers Care Calciner Operator Name Role Phone Unavailable Primary Care Provider Unavailabl e Encounter Details Date Type Department Care Team (Late st Contact Info) Description 11/22/1998 Outpatient Historical [facility] Rhe[facility]- [facility] [place] [address] [place] [phone] Social History Tobacco Use Types Packs/Day Years Used Date Smoking Tobacco: Never Assessed Sex and Gender Information Value Date Recorded Sex Assigned at Not on file 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
--- OUTSIDE RECORDS SUMMARY | 2025-03-03 11:08 | XMS_ITS | Encounter Summary ---
Author Organization [facility] Address [address] [place] [address] Care Team Providers Care Health Facilities Surveyor Name Role Phone Unavailable Primary Care Provider Unavailabl e Encounter Details Date Type Department Care Team (Latest Contact Info) Description 06/07/[address] [facility]- 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
--- OUTSIDE RECORDS SUMMARY | 2025-03-03 11:08 | XMS_ITS | Clinical Summary ---
Author Organization [facility] Address [address] Almaraz: Epic Prelude ADT [place] [address] Care Team Providers Care Mounter Automatic Name Role Phone Unavailable Primary Care Provider Unavailabl e Allergies No known active allergies Medications adalimumab (HUMIRA) 40 mg/0.8 mL Syringe Kit Inject 40 mg by subcutaneous injection every 2 weeks. 9 Active lisinopriL (PRINIVIL) 10 mg tablet Take 1 Tablet by mouth daily. 4 Active CALCIUM CARBONATE-VITAM IN D3 ORAL Take by mouth. Acti ve HYDROcodone-kiko taminophen (NORCO) 7.5-325 mg TabletIndicatio ns:Kidney stone on left side Take 1 Tablet by mouth every 8 hours as needed for Pain, Moderate. Max Daily Amount: 3 Tablets 15 Tablet 4 Active Active Problems Problem Noted Date Diagnosed Date Kidney stone on left side 11/28/2023 Anuria 11/28/2023 Hydronephrosis concurrent wi th and due to calculi of kidney and ureter 11/28/2023 Encounters Date Type Department Care Team Description 03/02/2025 Orders Only [address] [facility] [address] [place] [address] Bianca Velez PA-C Nephrolithiasis (Primary Dx) 02/24/2025 External Device Data STL ABSTRACTION Provider, Abstract 02/18/2025 External Device Data STL ABSTRACTION Provider, Abstract 02/17/2025 External Device Data ST[facility] ABSTRACTION Provider, Abstract 01/05/[address] [facility] [address] [place] [id number] Bianca Velez, PA-C Documentation Only from Last 3 Months Immunizations Immunization Administration Dates Next Due INFLUENZA VACCINE TRIVALENT SPLIT VIRUS, (6 MOS UP), 0.5ML (PF), IM 02/08/2024 Influenza Seasonal Unspecified Formulation IM Family History Medical History Relation Name Comments Colon Cancer Neg Hx Social History Tobacco Use Types Packs/Day Years Used Date Smoking Tobacco: Former Smokeless Tobacco: Current Chew Alcohol Use Standard Drinks/Week Comments Not Currently 0 (1 standard drink = 0.6 oz pur e alcohol) occ Feeling Safe Answer Date Recorded Are you in a relationship wi th someone who hurts you emotionally and/or physically? No 02/19/2024 Food Insecurity Answer Date Recorded Patient needs follow up regardin 08/25/2024 Transportation Needs Answer Date Record ed Patient needs follow up regardin 08/25/2024 Housing Stability Answer Date Recorded Social/Environmental Concerns No concerns Utility Needs Answer Date Recorded Patient needs follow up regardin 08/25/2024 Sex and Gender Information Value Date Recorded Sex Assigned at Not on file Legal Sex Male 2:39 AM SILK PRESSER Gender Identity Not on file Sexual Orientation Not on file Last Filed Vital Signs Vital Sign Reading Time Taken Comments Blood Pressure 129/78 03/10/2024 1:19 PM SILK PRESSER Pulse 81 03/10/2024 1:19 PM SILK PRESSER Temperature 36.2 C (97.1 F) 02/19/2024 4:05 PM CDT Respiratory Rate 16 02/19/2024 4:05 PM CDT Oxygen Saturation 97% 02/19/2024 4:05 PM CDT Inhaled Oxygen Concentration - - Weight 79.9 kg (176 lb 3.2 oz) 03/10/2024 1:19 PM SILK PRESSER Height 172.7 cm (5' 8 ) 03/10/2024 1:19 PM SILK PRESSER Body Mass Index 26.79 03/10/2024 1:19 PM SILK PRESSER Plan of Treatment Upcoming Encounters Date Type Department Care Team (Late st Contact Info) Description 03/27/2025 3:00 PM SILK PRESSER Office Visit [facility] [address] [place] [id number] Bianca Velez PA-C [address] [place] [phone] Health Maintenance Due Date Last Done Comments Pre-Diabetes and Diabetes Screening 1965 DTAP/TDAP/TD VACCINES (1 - Tdap) 08/12/1986 HEPATITIS B VACCINES (1 of 3 - 19+ 3-dose series) 08/12/1986 FIT-DNA Q 3 years 08/12/2012 FIT/FOBT Q 1 year 08/12/2012 Flex Sig/CT Colonography Q 5 years 08/12/2012 ZOSTER VACCINE (1 of 2) 08/12/2017 Medicare [place] ([place]) Prev entative Visit/Annual Wellness Visit 04/23/2024 INFLUENZA VACCINE (#1) 2024 02/08/2024, 2016 COLORECTAL SCREENING 03/26/2028 03/26/2023, 03/26/20 Colorectal Cancer Screening 03/26/2028 Abdominal Aortic Aneurysm (AAA) Screening Completed 11/28/2023 Medical Devices Implanted Type Area Physician Assistant Certified Device Identifier Shelf Expiration Date Model / Serial / Lot Stent Contour [id number] - [id number] Implanted:Qty: 1 on 02/19/2024 by Mann Hart MD at [facility] Stent Left: 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 [id number] 06/08/2026 [id number] 20 / / [id number] Description:no string Explanted Type Area Physician Assistant Certified Device Identifier Shelf Expiration Date Model / Serial / Lot Stent Contour [id number] - [id number] Implanted:Qty: 1 on 11/28/2023 by Ascencion Kemp MD at [facility] Explanted:Qty: 1 on 02/19/2024 by Mann Hart MD at [facility] Stent Left: 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 [id number] 07/04/2026 [id number] 30 / / [id number] Procedures Procedure Name Priority Date/Time Associated Diagnosis Comments CT ABDOMEN PELVIS WO CONTRAST Routine 11/28/2023 9:20 AM CDT COLONOSCOPY REPORT 03/26/2023 2: 17 PM SILK PRESSER from Last 3 Months or Most Recently Relevant to Health Maintenance Results * CT ABDOMEN PELVIS WO CONTRAST (11/28/2023 9:20 AM CDT) Anatomical Region Laterality Modality Abdomen Computed Tomogra phy 11/28/2023 9:14 AM CDT Narrative 11/28/2023 9:[address] ABDOMEN AND PELVIS WITHOUT CONTRAST DATE: 11/28/2023 9:14 AM INDICATION: Abdominal pain, acute onset TECHNIQUE: Computed tomography images were obtained through the abdomen and pelvis without IV contrast. Lack of IV contrast limits evaluation of solid organ parenchyma, bowel and for inflammatory processes. Multiplanar 2-D and reformatted images were obtained. One or more dose reduction techniques were used in acquisition of this exam. COMPARISON: None. FINDINGS: Lung bases: Coronary calcifications. No pulmonary infiltrate or mass. Calcific pleural plaquing in the right posterior chest. This causes some thickening of the pleura. A well-circumscribed mass is not seen. Liver: Focal fatty infiltration along the falciform ligament. No hepatic mass. Gallbladder: Gallbladder is present. There are no calcified gallstones appreciated. Bile ducts: Within normal limits. Pancreas: Within normal limits. Spleen: Within normal limits. Adrenal glands: No mass appreciated. Kidneys and ureters: Right kidney is absent. The left kidney is markedly hypertrophic measuring 12.6 cm craniocaudal. There is stranding and edema around the left kidney. There is severe hydronephrosis. There is a large stone in the left renal pelvis and may be partially obstructing. This measures up to 2.4 cm. There is some hyperdense material in a mid calyx that could represent mass or hemorrhage. There is a stone in the lower pole calyx measuring craniocaudal 1.3 cm. There is dilatation of the left ureter into the pelvis. There is a stone protruding into the bladder lumen causing the obstruction measuring 6 mm. Bowel: There is diverticulosis of the descending colon and sigmoid colon. Incomplete distention of the bowel loops. No evidence of bowel obstruction. Appendix: Appendix is visualized. There is no evidence of appendicitis. Aorta/Vessels: Scattered aortic atherosclerosis. Retroperitoneum: Small retroperitoneal lymph nodes without nghia adenopathy Peritoneum: There is no significant free fluid in the abdomen or pelvis. Reproductive organs: Prostate is unremarkable Urinary bladder: Unremarkable. Iliac/Inguinal Regions: No significant adenopathy. No hernia. Bones/Soft Tissues: Diffuse fusion of the thoracic and lumbar spine in a pattern consistent with ankylosing spondylitis. In addition there is complete fusion of the SI joints. IMPRESSION: 1. Large stone in the left renal pelvis . There is also a stone in the left lower pole calyx and a stone protruding into the bladder lumen causing severe hydronephrosis. Within the mid left kidney there is some subtle hyperdensity within a mid to lower pole calyx best demonstrated on coronal image #42. Although this could represent blood product, possibility of a mass is not excluded. Urologic evaluation recommended.. 2. Absent right kidney. No surgical clips are identified. Normal-appearing right adrenal gland noted. 3. Ankylosing spondylitis. 4. Diverticulosis without diverticulitis. Electronically Signed By: Mary Kay Love MD, Signed On: 11/28/2023 9:31 AM, [email or web address] Procedure Note Mary Kay Love MD - 11/28/2023 CT ABDOMEN AND PELVIS WITHOUT CONTRAST DATE: 11/28/2023 9:14 AM INDICATION: Abdominal pain, acute onset TECHNIQUE: Computed tomography images were obtained through the abdomenand pelvis without IV contrast. Lack of IV contrast limits evaluation of solidorgan parenchyma, bowel and for inflammatory processes. Multiplanar 2-D and reformatted images were obtained. One or more dose reduction techniqueswere used in acquisition of this exam. COMPARISON: None. FINDINGS: Lung bases: Coronary calcifications. No pulmonary infiltrate or mass.Calcific pleural plaquing in the right posterior chest. This causes some thickeningof the pleura. A well-circumscribed mass is not seen. Liver: Focal fatty infiltration along the falciform ligament. No hepaticmass. Gallbladder: Gallbladder is present. There are no calcified gallstones appreciated. Bile ducts: Within normal limits. Pancreas: Within normal limits. Spleen: Within normal limits. Adrenal glands: No mass appreciated. Kidneys and ureters: Right kidney is absent. The left kidney is markedly hypertrophic measuring 12.6 cm craniocaudal. There is stranding and edemaaround the left kidney. There is severe hydronephrosis. There is a large stone inthe left renal pelvis and may be partially obstructing. This measures up to2.4 cm. There is some hyperdense material in a mid calyx that could represent massor hemorrhage. There is a stone in the lower pole calyx measuringcraniocaudal 1.3 cm. There is dilatation of the left ureter into the pelvis. There is astone protruding into the bladder lumen causing the obstruction measuring 6mm. Bowel: There is diverticulosis of the descending colon and sigmoidcolon. Incomplete distention of the bowel loops. No evidence of bowelobstruction. Appendix: Appendix is visualized. There is no evidence of appendicitis. Aorta/Vessels: Scattered aortic atherosclerosis. Retroperitoneum: Small retroperitoneal lymph nodes without frankadenopathy Peritoneum: There is no significant free fluid in the abdomen or pelvis. Reproductive organs: Prostate is unremarkable Urinary bladder: Unremarkable. Iliac/Inguinal Regions: No significant adenopathy. No hernia. Bones/Soft Tissues: Diffuse fusion of the thoracic and lumbar spine in apattern consistent with ankylosing spondylitis. In addition there is completefusion of the SI joints. IMPRESSION: 1. Large stone in the left renal pelvis . There is also a stone in theleft lower pole calyx and a stone protruding into the bladder lumen causingsevere hydronephrosis. Within the mid left kidney there is some subtlehyperdensity within a mid to lower pole calyx best demonstrated on coronal image #42. Although this could represent blood product, possibility of a mass isnot excluded. Urologic evaluation recommended.. 2. Absent right kidney. No surgical clips are identified.Normal-appearing right adrenal gland noted. 3. Ankylosing spondylitis. 4. Diverticulosis without diverticulitis. Electronically Signed By: Mary Kay Love MD, Signed On: 11/28/2023 9:31AM, [email or web address] us [facility] [address]o [facility] [address] ORDERABLES Final Result * COLONOSCOPY REPORT (03/26/2023 2:17 PM SILK PRESSER) Narrative Procedure Note Adam Bansal DO - 03/26/2023 2:17 PM CST [facility] Patient Name: Parker Hayes Procedure Date: 03/26/2023 Date of : 1965 Admit Type: Outpatient Age: 57 Attending MD: Adam Bansal DO, Procedure: Colonoscopy Indications: Screening for colorectal malignant neoplasm Providers: Adam Bansal DO Referring MD: Eduard Feliz NP Medicines: Fentanyl 100 micrograms IV, Midazolam 7 mg IV Complications: No immediate complications. Procedure: After I obtained informed consent, the scope was passed under direct vision. Throughout the procedure, the patient's blood pressure, pulse, and oxygen saturations were monitored continuously. The Colonoscope was introduced through the anus and advanced to the cecum, identified by appendiceal orifice and ileocecal valve. The colonoscopy was performed without difficulty. The patient tolerated the procedure well. The quality of the bowel preparation was excellent. Estimated Blood Loss: Estimated blood loss was minimal. Findings: A few localized and segmental non-bleeding erosions were found in the rectum and in the transverse colon. Biopsies were taken with a cold forceps for histology. The terminal ileum appeared normal. A few medium-mouthed and small-mouthed diverticula were found in the sigmoid colon. Moderate Sedation: Moderate (conscious) sedation was administered by the nurse and supervised by the endoscopist. The following parameters were monitored: oxygen saturation, heart rate, blood pressure, respiratory rate, EKG, adequacy of pulmonary ventilation, and response to care. Total physician intraservice time was 16 minutes. Impression: - A few erosions in the rectum and in the transverse colon. Biopsied. - The examined portion of the ileum was normal. - Diverticulosis in the sigmoid colon. Recommendation: - Patient has a contact number available for emergencies. The signs and symptoms of potential delayed complications were discussed with the patient. Return to normal activities tomorrow. Written discharge instructions were provided to the patient. - Resume previous diet. - Continue present medications. - Repeat colonoscopy date to be determined after pending pathology results are reviewed for surveillance. Adam Bansal DO 03/26/2023 2:16:26 PM Number of Addenda: 0 Note Initiated On: 03/26/2023 1:47 PM Scope Withdrawal Time 0 hours 8 minutes 55 seconds Scope In: 1:59:09 PM Scope Out: 2:12:18 PM [id number] Adam Bansal DO GI PROCEDURE ORDERABLES Final Result from Last 3 Months or Most Recently Relevant to Health Maintenance Insurance MEDICAID [place] [facility] OPEN ACCESS [facility] Advance Directives For more information, please contact: [phone] * Full Code (Latest Code Status on File) Date Activated Date Inactivated Comments 02/01/2024 7:51 AM 02/01/2024 5:59 PM * Full Code Date Activated Date Inactivated Comments 11/28/2023 11:23 AM 11/29/2023 3:29 PM * Full Code Date Activated Date Inactivated Comments 11/28/2023 6:31 AM 11/28/2023 11:23 AM * Full Code Date Activated Date Inactivated Comments 03/26/2023 1:14 PM 03/26/2023 4:48 PM
--- OUTSIDE RECORDS SUMMARY | 2025-03-03 11:08 | XMS_ITS | Data Portability ---
Author Organization [facility] .[facility] Address [address] [address] Care Team Providers Care Assistant Professor Sculpture Name Role Phone MIMA LEAL Primary Care Provider Assessment Encounter Date Assessment Date Assessment LastModified by Organization Details LastModified Time 11/13/2022 11/13/2022 Random joint michael ns and aches could be related to rheumatological diseases. The patient only has 1 kidney and likely should avoid NSAIDs. Linsey options with the patient and the patient would like to go ahead and proceed with referral to rheumatology to discuss biologicals once again. [email or web address] Not available 11/13/2022 16:14:52 Plan of Treatment Reminders Order Date Submit Date Provider Last Modified By Organization Details Last Modified Time Details Appointments None recorded. Lab None recorded. Referral rheumatolog ist referral 2022 023 [email or web address] 2 Ritesh Kumar MD, [address] [place], [address], 15:20:03 Procedures None recorded. Surgeries None recorded. Imaging None recorded. Medication Orders None recorded. Patient TargetsNo targets recorded. Patient InstructionsNo instructions recorded. 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 Referral for Ankylosing spondylitis Referring Physician: Mima Leal, Family Medicine, Encounter Date: 11/13/2022 Results Created Date Observation Date Name Description Value Unit Range Abnormal Flag Note LastModifiedBy Organization Detail LastModifiedTime 12/22/19 23 12/21/2022 CBC WBC 7.8 x10 4.5-10 .5 Not Available [facility] [address] [facility], [place], [address], 12/21/2022 17:08:36 12/22/19 23 12/21/2022 CBC RBC 5.18 x10 4.30-5 .90 Not Available [facility] [address] [facility], [place], [address], 12/21/2022 17:08:36 12/22/19 23 12/21/2022 CBC HGB 17.1 g/dL 13.5-1 8.0 Not Available [facility] [address] [facility] [address], [place], [address], 12/21/2022 17:08:36 12/22/19 23 12/21/2022 CBC HCT 48.0 % 35.0-6 0.0 Not Available [facility] [address] [facility] [address] [facility], [place], [address], 12/21/2022 17:08:36 12/22/19 23 12/21/2022 CBC MCV 92.6 fL 80.0-9 9.9 Not Available [facility] [address] [facility], [place], [address], 12/21/2022 17:08:36 12/22/19 23 12/21/2022 CBC MCH 32.9 pg 27.0-3 2.0 high Not Available [facility] [address] [facility] [address] [facility], [place], [address], 12/21/2022 17:08:36 12/22/19 23 12/21/2022 CBC MCHC 35.5 g/dL 32.0-3 6.0 Not Available [facility] [address] [facility] [address] [facility], [place], [address], 12/21/2022 17:08:36 12/22/19 23 12/21/2022 CBC RDW 13.6 % 11.5-1 4.5 Not Available [facility] [address] [facility] 1, [place], [address], 12/21/2022 17:08:36 12/22/19 23 12/21/2022 CBC plt 260.0 x10 150.0- 451.0 Not Available [facility] [address] [facility] 1, [place], [address], 12/21/2022 17:08:36 12/22/19 23 12/21/2022 CBC lymphocytes % 14.4 % 20.0-5 0.0 low Not Available [facility] [address] [facility] 1, [place], [address], 12/21/2022 17:08:36 12/22/19 23 12/21/2022 CBC granulcytes % 70.0 % 30.0-7 0.0 Not Available [facility] [address] [address], [place], [address], 12/21/2022 17:08:36 12/22/19 23 12/21/2022 CBC monocytes % 8.9 % 2.0-10 .0 Not Available [facility] [address] [address], [place], [address], 12/21/2022 17:08:36 12/22/19 23 12/21/2022 CBC granulcytes# 5.4 x10 Not Nara ilable [facility] [address] [address], [place], [address], 12/21/2022 17:08:36 12/22/19 23 12/21/2022 CBC lymphocytes # 1.1 x10 Not Available [facility] [address] [facility] [address] [address], [place], [address], 12/21/2022 17:08:36 12/22/19 23 12/21/2022 CBC monocytes # 0.7 x10 Not Avai lable [facility] [address] [facility], [place], [address], 12/21/2022 17:08:36 12/22/19 23 12/21/2022 CMP (FEMA LE) glucose 100.0 mg/dL 60.0-9 9.0 high Not Available [facility] [address] [facility], [place], [address], 12/21/2022 17:30:28 12/22/19 23 12/21/2022 CMP (FEMA LE) BUN (blood urea nitrogen) 14.0 mg/dL 10.0-2 6.0 Not Available [facility] [address] [facility], [place], [address], 12/21/2022 17:30:28 12/22/19 23 12/21/2022 CMP (FEMA LE) creatinine (serum) 1.2 mg/dL 0.4-1. 5 Not Available [facility] [address] [facility], [place], [address], 12/21/2022 17:30:28 12/22/19 23 12/21/2022 CMP (FEMA LE) BUN/creatini ne ratio 11.67 ratio Not Available [facility] [address] [facility], [place], [address], 12/21/2022 17:30:28 12/22/19 23 12/21/2022 CMP (FEMA LE) eGFR calculated 66.8 Not Available [facility] [address] [facility], [place], [address], 12/21/2022 17:30:28 12/22/19 23 12/21/2022 CMP (FEMA LE) total protein 7.3 g/dL 6.0-8. 5 Not Available [facility] [address] [facility], [place], [address], 12/21/2022 17:30:28 12/22/19 23 12/21/2022 CMP (FEMA LE) total bilirubin 1.6 mg/dL 0.2-1. 3 high Not Available [facility] [address] [facility], [place], [address], 12/21/2022 17:30:28 12/22/19 23 12/21/2022 CMP (FEMA LE) albumin 4.9 g/dL 3.5-5. 5 Not Available [facility] [address] [facility] [address], [place], [address], 12/21/2022 17:30:28 12/22/19 23 12/21/2022 CMP (FEMA LE) globulin 2.4 calc Not Available [facility] [address] [place] [facility], [place], [address], 12/21/2022 17:30:28 12/22/19 23 12/21/2022 CMP (FEMA LE) AST (SGOT) 25.0 U/L 0.0-46 .0 Not Available [facility] [address] [facility] [address], [place], [address], 12/21/2022 17:30:28 12/22/19 23 12/21/2022 CMP (FEMA LE) altv (SGPT) 22.0 U/L 13.0-6 9.0 normal Not Available [facility] [address] [facility] [address], [place], [address], 12/21/2022 17:30:28 12/22/19 23 12/21/2022 CMP (FEMA LE) A/G ratio 2.0 ratio Not Available [facility] [address] [place] [facility], [place], [address], 12/21/2022 17:30:28 12/22/19 23 12/21/2022 CMP (FEMA LE) ALP phos 76.0 U/L 30.0-1 40.0 normal Not Available [facility] [address] [facility], [place], [address], 12/21/2022 17:30:28 12/22/19 23 12/21/2022 CMP (FEMA LE) calcium 9.9 mg/dL 8.4-10 .5 Not Available [facility] [address] [facility] 1, [place], [address], 12/21/2022 17:30:28 12/22/19 23 12/21/2022 CMP (FEMA LE) sodium 137.0 mmol/ L 136.0- 145.0 Not Available [facility] [address] [facility] 1, [place], [address], 12/21/2022 17:30:28 12/22/19 23 12/21/2022 CMP (FEMA LE) potassium 4.6 mmol/ L 3.5-5. 1 Not Available [facility] [address] [facility] 1, [place], [address], 12/21/2022 17:30:28 12/22/19 23 12/21/2022 CMP (FEMA LE) chloride 99.0 mmol/ L 98.0-1 10.0 normal Not Available [facility] [address] [facility] 1, [place], [address], 12/21/2022 17:30:28 12/22/19 23 12/21/2022 CMP (FEMA LE) C02 31.0 mmol/ L 22.0-3 1.0 Not Available [facility] [address] [facility] 1, [place], [address], 12/21/2022 17:30:28 12/22/19 23 12/21/2022 CMP (FEMA LE) anion gap 7.0 calc Not Available [facility] [address] [facility] 1, [place], [address], 12/21/2022 17:30:28 12/22/19 23 12/21/2022 CMP (FEMA LE) osmolality 283.7 calc Not Available [facility] [address] [facility] 1, [place], [address], 12/21/2022 17:30:28 12/22/19 23 12/22/2022 C-KATIE CTIVE PROTE IN C-reactive protein 2.8 mg/L <8.0 normal Not Available [employer] [facility] [address] [place], [address], 12/22/2022 10:26:37 12/23/19 23 12/22/2022 ESR (eryt hrocy te sedim entat ion rate) , blood sedrate 5 Not Available [facility] ([facility]) [address] [place], [address], 12/22/2022 12:47:23 01/13/20 23 01/22/2023 CORDELL SCR,I FA W/REF L TITER PATTE RN/MP X11AB /IDEN TRA CORDELL screen, ifa NEGATI VE negati ve normal CORDELL IFA is a first line scree n for detec ting the prese nce of up to appro ximat evaristo 150 autoa ntibo dies in vario us autoi mmune disea ses. A negat tierney CORDELL IFA resul t sugge sts an CORDELL-a ssoci ated autoi mmune disea se is not prese nt at this time, and does not refle x furth er. If there is high clini renzo suspi cion for Sjogr en's syndr ome, testi ng for anti- SS-A/ Ro antib lieztte shoul d be consi dered . Anti- Carisa-1 antib lizette shoul d be consi dered for clini jose suspe cted infla mmato ry myopa otto . AC-0: Negat tierney Inter natio nal Conse nsus on CORDELL Patte rns (http s://d oi.or g/10. 1515/ [facility]- 0052) For addit ional infor jess quijano e refer to http: //[facility] kenna bowers.Que stDia gnost ics.c om/fa q/FAQ 177 (This link is being provi ded for infor [place]/ educa tom l purpo ses only. ) Not Available [address] [address] [place], [address], 01/22/2023 01:31:47 01/13/2001/22/2023 CORDELL SCR,I FA W/REF L TITER PATTE RN/MP X11AB /IDEN TRA rheumatoid factor <14 IU/mL <14 normal Not Available [address] [address] [place], [address], 01/22/2023 01:31:47 01/13/2001/22/2023 CORDELL SCR,I FA W/REF L TITER PATTE RN/MP X11AB /IDEN TRA cyclic citrullinate d peptide (ccp) Ab (IgG) <16 units normal Refer ence Range Negat tierney: <20 Weak Posit tierney: 20-39 Moder ate Posit tierney: 40-59 Stron g Posit tierney: >59 Not Available [employer] [address] [address] [place], [address], 01/22/2023 01:31:47 01/13/2001/22/2023 CORDELL SCR,I FA W/REF L TITER PATTE RN/MP X11AB /IDEN TRA 14.3.3 ETA protein <0.2 NG/mL <0.2 The 14-3- 3eta prote in is a marke r of synov ial infla mmati on that is relea sed into synov ial fluid and perip heral blood in rheum atoid arthr itis (RA) and erosi ve psori atic arthr itis. One in five RF and CCP seron egati ve early stage RA patie nts is found to be posit tierney for 14-3- 3eta prote in. Patie nts with activ e joint RA disea se have highe r value s of 14-3- 3eta prote in than those with inact tierney RA or psori asis witho ut arthr itis. 14-3- 3eta prote in has a 93% speci ficit y in patie nts with RA. Value s > or = 0.2 ng/mL are eleva ruddy and indic ative of RA disea se or erosi ve psori atic arthr itis. Value s >0.50 ng/mL are assoc iated with more aggre ssive RA disea se and phylicia r outco mes. Unlik e RF and CCP, 14-3- 3eta prote in is a thera peuti jose modif iable marke r to monit or respo nse to thera py. A decre ase in 14-3- 3eta prote in in respo nse to DMARD s (dise ase-m odify ing antir heuma tic drugs ) and anti- TNF (tumo r necro sis facto r) drugs indic ates shannon r clini renzo outco mes; an incre ase is assoc iated with worse outco mes despi te appar ent clini renzo remis martin. For jailene fermin infor [place] visit : http: //www .ques tdiag nosti cs.co m/bryant tcent er/te stgui de.ac tion? dc=TS -RmAr thPnl This test was devel oped and its georges tical perfo rmanc e vikki cteri stics have been deter mined by [facility] [employer] . It has not been clear ed or appro senia by FDA. This assay has been valid ated pursu ant to the CLIA regul ation s and is used for clini renzo purpo ses. Not Available [employer] [facility] [address], [place], [address], 01/22/2023 01:31:47 01/13/2001/13/2023 C-KATIE CTIVE PROTE IN C-reactive protein 3.6 mg/L <8.0 normal Not Available [employer] [facility] [address] [place], [address], 01/13/2023 12:20:45 Result Notes None recorded. Problems Name Problem SNOMED Code Status Onset Date Resolution Date Notes Provider Name and Address Organization Details Recorded Time Ankylosing spondylitis 1837222 Active [address] [facility], L.LSenia 3 17:43:18 Essential hypertension 50288709 Active [address] [facility], LDestiniLSenia 3 17:43:28 Problem Notes None recorded. Medical Equipment None Reported. Allergies No known drug allergies Medications Name Sig Start Date Stop Date Status Note LastModified by Organization Details LastModified Time ondansetr on 8 mg disintegr ating tablet DISSOLVE ONE TABLET ON TOP OF THE TONGUE WHERE IT WILL DISSOLVE THEN SWALLOW EVERY 8 HOURS FOR 2 DAYS 11/13 completed Not Available Not Available Not Available lisinopri l 10 mg tablet daily active 0; Recorded 07/11/19 2:09PM by Cassandra Yen, Office Visit; Not Available Not Available Not Available lisinopri l 10 mg-hydroc hlorothia zide 12.5 mg tablet TAKE ONE TABLET BY MOUTH ONCE DAILY 11/13 completed Not Available Not Available Not Available doxycycli ne hyclate 100 mg tablet TAKE 1 TABLET BY MOUTH TWICE DAILY 11/13 completed Not Available Not Available Not Available Vitals Date Recorded Respiratory rate Body height Body mass index (BMI) Body weight Body temperature Heart rate Oxygen saturation Oxygen saturation in Arterial blood by Pulse oximetry Systolic And Diastolic Provider Name and Address Organization Details Last Updated DateTime 3 20 /min 172.72 cm 28.7 kg/m2 07083.9 6 g 97.1 [degF] 85 /min 98 % 98 % 118/80 mm[Hg] CASSANDRA YEN [facility]L.CDestini 3 11:22:54 Social History None recorded. Functional Status None recorded. Mental Status None recorded. Family History Nothing Reported. Medical History No medical history recorded. Past Encounters Encounter ID Performer Location Encounter Start Date Encounter Closed Date Diagnosis/Indication Diagnosis SNOMED-CT Code Diagnosis ICD10 Code Diagnosis IMO Codes Diagnosis Note [id number] Mima Leal MD [facility] ([facility]) [address] [place] [address] 11/13/2022 11:12:03 11/13/2022 16:16:22 Ankylosing spondylitis 6013212 M45.0 Essential hypertension 95509431 I10 Patient will monitor blood pressure and report if unable to control or if they develop new symptoms. Health Concerns Section Related Observation LastModified by Organization Detai ls LastModified Time None Recorded Concern Status LastModified by Organization Details LastModified Time None Recorded Advance Directives Directive None Recorded Payers Insurance Date Sequence Insurance Name Policy Number Policy Mccullough Covered Member ID Mccullough Member ID Guarantor Name 01/12/2023 1 [place] Parker Hayes [id number] Parker Hayes 12/22/2022 2 [place] Parker Hayes [id number] Parker Hayes 01/12/2023 [place] - [facility] (MEDICARE) Parker Hayes [id number] Parker Hayes Notes Date Note Type Note Provider Name and Address Organization Details Recorded Time 11/13/2022 text/html This is a 57 y/o that presents today for concerns about generalized body aches and joint pain. Patient does have a history of ankylosing spondylitis and is not currently taking any medications for it. She has been controlled on current medications. Mima Leal MD [address] [place] [address], [phone], [facility], LWinine 11/13/2022 16:15:10
--- OUTSIDE RECORDS SUMMARY | 2025-03-03 11:08 | XMS_ITS | Encounter Summary ---
Author Organization [facility] Address [address] [place] [address] Care Team Providers Care Director Of Land Name Role Phone Unavailable Primary Care Provider Unavailabl e Encounter Details Date Type Department Care Team (Latest Contact Info) Description 07/31/1997 Outpatient Historical [facility] Imaging Services-Osiel Rolon Batsheva [address] [phone] Laron Faye MD [address] [place] [phone] Ankylosing spondylitis (CMS/HCC) (Primary Dx) Social History Tobacco Use Types Packs/Day Years Used Date Smoking Tobacco: Never Assessed Sex and Gender Information Value Date Recorded Sex Assigned at Not on file 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
--- OUTSIDE RECORDS SUMMARY | 2025-03-03 11:08 | XMS_ITS | Encounter Summary ---
Author Organization [facility] Address [address] [place] [address] Care Team Providers Care Remote Advisor Name Role Phone Unavailable Primary Care Provider Unavailabl e Encounter Details Date Type Department Care Team (Late st Contact Info) Description 08/25/1997 Outpatient Historical [facility] Rheumatology- [facility] [address] [place] [phone] Social History Tobacco Use Types Packs/Day Years Used Date Smoking Tobacco: Never Assessed Sex and Gender Information Value Date Recorded Sex Assigned at Not on file Legal Sex Male 4:19 AM CASE MANAGEMENT RN Gender Identity Not on file Sexual Orientation Not on file documented as of this encounter Plan of Treatment Not on file documented as of this encounter Visit Diagnoses Not on filedocumented in this encounter
--- OUTSIDE RECORDS SUMMARY | 2025-03-03 11:08 | XMS_ITS | Encounter Summary ---
Author Organization [facility] Address [address] [place] [address] Care Team Providers Care Top Precipitator Operator Name Role Phone Unavailable Primary Care Provider Unavailabl e Encounter Details Date Type Department Care Team (Latest Contact Info) Description 05/29/2005 Outpatient Historical [facility] Orthopedics- 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
--- OUTSIDE RECORDS SUMMARY | 2025-03-03 11:08 | XMS_ITS | Encounter Summary ---
Author Organization [facility] Address [address] [place] [address] Care Team Providers Care Sustainability Analyst Name Role Phone Unavailable Primary Care Provider Unavailabl e Encounter Details Date Type Department Care Team (Late st Contact Info) Description 11/23/1997 Outpatient Historical [facility] Rheumatology- [facility] [address] [place] [phone] Social History Tobacco Use Types Packs/Day Years Used Date Smoking Tobacco: Never Assessed Sex and Gender Information Value Date Recorded Sex Assigned at Not on file 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
--- OUTSIDE RECORDS SUMMARY | 2025-03-03 11:08 | XMS_ITS | Encounter Summary ---
Author Organization [facility] Address [address] [place] [address] Care Team Providers Care Shade Cloth Finisher Name Role Phone Unavailable Primary Care Provider Unavailabl e Encounter Details Date Type Department Care Team (Latest Contact Info) Description 05/24/1998 Outpatient Historical [facility] Rheumatology- [facility] [place] [address] [place] [address] Allie Carlos MD [address] [place] [address] Ankylosing spondylitis (CMS/HCC) (Primary Dx) Social History Tobacco Use Types Packs/Day Years Used Date Smoking Tobacco: Never Assessed Sex and Gender Information Value Date Recorded Sex Assigned at Not on file Legal Sex Male 4:19 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
--- OUTSIDE RECORDS SUMMARY | 2025-03-03 11:08 | XMS_ITS | Encounter Summary ---
Author Organization [facility] Address [address] [place] [address] Care Team Providers Care Cell Room Operator Name Role Phone Unavailable Primary Care Provider Unavailabl e Encounter Details Date Type Department Care Team (Latest Contact Info) Description 07/03/2005 Outpatient Historical [facility] Orthopedics- 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
--- OUTSIDE RECORDS SUMMARY | 2025-03-03 11:09 | XMS_ITS | Encounter Summary ---
Author Organization [facility] Address [address] [place] [address] Care Team Providers Care Parts Counter Sales Person Name Role Phone Unavailable Primary Care Provider Unavailabl e Reason for Referral * Radiology Services (Routine) - Authorized Specialty Diagnoses / Procedures Referred By Luther biswas Referred To Contact Diagnoses Nephrolithiasis Procedures XR ABDOMEN 1 VW Bianca Velez PA-C 1963 [facility] [address] [place] [address] Phone: tel: fax: Referral ID Status Reason Start Date Expiration Date V isits Requested Visits Authorized [id number] Authorized 03/02/2025 04/02/2026 1 1 RE AND AFTER SCHOOL DAYCARE WORKER Encounter Details Date Type Department Care Team (Late st Contact Info) Description 03/02/2025 Orders Only [facility] Urology [address] [address] Bianca Velez PA-C [address] [address] Nephrolithiasis (Primary Dx) Social History Tobacco Use Types [...] on file Legal Sex Male 2:39 AM BEFORE AND AFTER SCHOOL DAYCARE WORKER Gender Identity Not on file Sexual Orientation Not on file documented as of this encounter Plan of Treatment Upcoming Encounters Date Type Department Care Team (Late st Contact Info) Description 03/27/2025 3:00 PM BEFORE AND AFTER SCHOOL DAYCARE WORKER Office Visit [facility] Urology [address] [phone] Bianca Velez PA-C [facility] [address] [place] [address] Scheduled Orders Name Type Priority Associated Diagnoses Orde r Schedule XR ABDOMEN 1 VW Imaging Routine Nephrolithiasis Expected: 03/02/2025 (Approximate), Expires: 06/02/2025 documented as of this encounter Visit Diagnoses Diagnosis Nephrolithiasis- Primary Calculus of kidney documented in this encounter
--- OUTSIDE RECORDS SUMMARY | 2025-03-03 11:09 | XMS_ITS | Encounter Summary ---
Author Organization [facility] Address [address] [place] [address] Care Team Providers Care Lens Blank Gauger Name Role Phone Unavailable Primary Care Provider Unavailabl e Encounter Details Date Type Department Care Team (Latest Contact Info) Description 07/31/1997 Outpatient Historical [facility] Rheumatology- [facility] [place] [address] [place] [phone] Allie Carlos MD [address] [place] [address] Ankylosing spondylitis (CMS/HCC) (Primary Dx) Social History Tobacco Use Types Packs/Day Years Used Date Smoking Tobacco: Never Assessed Sex and Gender Information Value Date Recorded Sex Assigned at Not on file 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
--- OUTSIDE RECORDS SUMMARY | 2025-03-03 11:09 | XMS_ITS | Clinical Summary ---
Author Organization [facility] Address [address] [place] [address] Phone Care Team Providers Care Ic Engineer Name Role Phone Unavailable Primary Care Provider Unavailabl e Allergies No known active allergies Medications adalimumab (HUMIRA) 40 mg/0.8 mL Syringe Kit Inject 40 mg by subcutaneous injection every 2 weeks. Active lisinopril (PRINIVIL) 20 mg tablet Take 20 mg by mouth daily. 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 Gender Identity Not on file Sexual Orientation Not on file Last Filed Vital Signs Vital Sign Reading Time Taken Comments Blood Pressure 142/79 06/17/2019 9:35 AM TUBE BENDER Pulse 87 06/17/2019 9:35 AM TUBE BENDER Temperature 36.6 C (97.9 F) 04/03/2019 12:25 PM TUBE BENDER Respiratory Rate - - Oxygen Saturation 99% 04/03/2019 12:25 PM TUBE BENDER Inhaled Oxygen Concentration - - Weight 87.5 kg (193 lb) 06/17/2019 9:35 AM TUBE BENDER Height 172.7 cm (5' 8 ) 06/17/2019 9:35 AM TUBE BENDER Body Mass Index 29.35 06/17/2019 9:35 AM TUBE BENDER Plan of Treatment Health Maintenance Due Date Last Done Comments DTAP/TDAP/TD VACCINES (1 - Tdap) 08/12/1986 HEPATITIS B VACCINES (1 of 3 - 19+ 3-dose series) 07/23 COLORECTAL SCREENING 08/12/2012 Colorectal Cancer Screening 08/12/2012 FIT-DNA Q 3 years 08/12/2012 FIT/FOBT Q 1 year 08/12/2012 Flex Sig/CT Colonography Q 5 years 08/12/2012 ZOSTER VACCINE (1 of 2) 08/12/2017 INFLUENZA VACCINE (#1) 2024 Insurance MEDICAID [place] PART [place] AND B
--- OUTSIDE RECORDS SUMMARY | 2025-03-03 11:09 | XMS_ITS | Encounter Summary ---
Author Organization [facility] Address [address] [place] [address] Care Team Providers Care Boat Joiner Helper Name Role Phone Unavailable Primary Care Provider Unavailabl e Reason for Visit * Reason Onset Date Comments New Prescription Request 02/01/2024 Encounter Details Date Type Department Care Team (Late Contact Info) Description 02/01/2024 Telephone [facility] Urology- [place] [address] [facility] [address] [place] [address] Mann Hart MD [address] [place] [address] New Prescription Request Social History Tobacco Use Types Packs/Day Years Used Date Smoking Tobacco: Former Smokeless Tobacco: Current Chew Alcohol Use Standard Drinks/Week Comments Not Currently 0 (1 standard drink = 0.6 oz pur e alcohol) occ Feeling Safe Answer Date Recorded Are you in a relationship wi th someone who hurts you emotionally and/or physically? 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
--- OUTSIDE RECORDS SUMMARY | 2025-03-03 11:09 | XMS_ITS | Patient Health Record ---
Author Organization [facility] Address [address] [place] [address] Support Name Relationship Address Phone Parker Hayes Guarantor Unknown Reason For Referral No Information Medications Medication SIG (Take, Route, Frequency, Duration) Notes Start Date End Date Status 0.8 ML adalimumab 50 MG/ML Prefilled Syringe 0.8 ML adalimumab 50 MG/ML Prefilled Syringe 8 04/23/18 Active Hydrochlorothiazide 12.5 MG / Lisinopril 20 MG Oral Tablet Hydrochlorothiazide 12.5 MG / Lisinopril 20 MG Oral Tablet 8 04/23/18 Active Naproxen sodium 220 MG Oral Tablet Naproxen sodium 220 MG Oral Tablet 4 04/23/18 Active Immunizations Vaccine Route Administration Date Status Comme nts Influenza (whole), CPT 15898 Inactive Unknown 02/04/2017 Administered Social History Social History Additional Details Category Social Info Options Details zzMigrated Social History Migrated Social History Smoking Status:Never smoked tobacco (finding) Plan Of Treatment No Information
--- OUTSIDE RECORDS SUMMARY | 2025-03-03 11:09 | XMS_ITS | Encounter Summary ---
Author Organization [employer] [facility] Address 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
[2025-03-03 11:27] LABS: Hematocrit 49.2 % (37-53); Hemoglobin 16.60 g/dL (11.27-16.99); Mean Corpuscular HGB Conc 33.7 g/dL (30-55); Mean Corpuscular Hemoglobin 31.1 pg (27-33); Mean Corpuscular Volume 92.3 fl (82-101); Nucleated Red Blood Cells % 0 %; Platelet Count 252 10^3/cmm (157-399); Red Blood Count 5.33 10^6/uL (3.85-5.65); White Blood Count 6.75 10^3/uL (3.29-11.43)
--- NOTE | 2025-03-03 11:27 | CT_ITS ---
WS: [id number] CT HEAD NONCONTRAST HISTORY: Intermittent dysarthria x 4 days TECHNIQUE: Contiguous axial imaging performed through the brain. Bone and soft tissue windows. Sagittal and coronal reformats reviewed. All CT scans at [facility] use at least one of these dose optimization techniques: automated exposure control; mA and/or kV adjustment per patient size (includes targeted exams where dose is matched to clinical indication); or iterative reconstruction. DLP: 1067.98 mGy.cm COMPARISON: 03/25/2019 No acute intracranial hemorrhage, midline shift or mass effect. No atrophy or prior infarcts or herniation. Ventricles: Normal size with no hydrocephalus. No inferior displacement of the cerebellar tonsils. Paranasal sinuses: Mucoperiosteal thickening in the ethmoid air cells. No air- fluid levels. Mastoid air cells: Small amount of cerumen in the LEFT external auditory canal. Mastoid air cells are clear. Calvarium and scalp: Skull is intact with no soft tissue edema or swelling. CT/CT head wo con* [id number] IMPRESSION: 1. No acute intracranial hemorrhage or edema. 2. Stable noncontrast head CT. 3. No prior infarct.
[2025-03-03 11:31] LABS: Glucose Urine UA Negative (Normal); Nitrate Urine Negative (Negative); Specific Gravity, Urine 1.008 (1.005-1.030)
[2025-03-03 11:36] LABS: Add Urine Microscopic? YES
[2025-03-03 11:43] LABS: Alanine Aminotransferase 17 U/L (0-41); Albumin Level 4.7 g/dL (3.5-5.2); Alkaline Phosphatase 83 U/L (40-130); Anion Gap 16.9 (5-19); Aspartate Amino Transferase 18 U/L (0-40); Blood Urea Nitrogen 15 mg/dL (6-20); Calcium 9.8 mg/dL (8.5-10.5); Carbon Dioxide 26 mmol/L (22-29); Chloride 101 mmol/L (98-107); Globulin 2.4 g/dL (1.3-4.6); Glucose 103 mg/dL (65-115); Osmolality Calculated 291 mOsm/kg (285-295); Potassium 3.9 mmol/L (3.5-5.1); Sodium 140 mmol/L (136-145); Total Protein 7.1 g/dL (6.6-8.7)
--- NOTE | 2025-03-03 12:04 | XR_ITS ---
WS: [id number] Exam: XR chest 1V portable [id number] Date/Time of Exam: 03/03/2025 12:04 PM Reason For Exam: Weakness Comparison 06/20/2022. Lungs are fully inflated and clear. Normal cardiomediastinal silhouette. There is hyperinflation. There is levoscoliosis of the T-spine with findings that may indicate ankylosing spondylitis. XR/XR chest 1V portable [id number] IMPRESSION: 1. Pulmonary hyperinflation but no acute process. 2. Findings that suggest ankylosing spondylitis.
[2025-03-03 12:09] VITALS: BP 147/90; PULSE 80; O2SAT 98
[2025-03-03 12:57] VITALS: BP 134/87; PULSE 83; O2SAT 98
== END 2025-03-03 12:59 | disposition home or self-care (01) ==
PROVIDERS: Emergency Provider Family Medicine; PCP Nurse Practitioner
DX: R53.1 Weakness (principal); I10 Essential (primary) hypertension; M45.9 Ankylosing spondylitis of unspecified sites in spine; Z87.891 Personal history of nicotine dependence
CPT/HCPCS: 36415; 70450; 71045; 80053; 81001; 82550; 85025; 93005; 99285

== ENCOUNTER → 2025-03-25 13:38 | Outpatient (BNVA) | payer OTHER, MEDICAID, SELFPAY | PROVIDERS: PCP Nurse Practitioner; Visit Provider Internal Medicine Cardiovascular Disease | DX: R94.31 Abnormal electrocardiogram [ECG] [EKG] (principal); I10 Essential (primary) hypertension; I45.10 Unspecified right bundle-branch block; E78.5 Hyperlipidemia, unspecified; Z15.89 Genetic susceptibility to other disease; Z79.82 Long term (current) use of aspirin; Z86.73 Personal history of transient ischemic attack (TIA), and cerebral infarction without residual deficits; Z87.891 Personal history of nicotine dependence | CPT/HCPCS: 99214 ==